=== PATIENT | female | born 1950 | race Caucasian/White ===

== ENCOUNTER 2016-10-05 12:40 | Emergency (ER) | payer MEDICARE, OTHER ==
[~2016-10-05] VITALS: Ht 160 cm; Wt 61.5 kg
[2016-10-05 12:42] VITALS: BP 127/57; PULSE 87; RESP 14; TEMP 98.4; O2SAT 96
[2016-10-05] MEDS ORDERED: TRIA37.53 PO (12:57)
[2016-10-05] MEDS ORDERED: TERB250T4 PO (12:57)
[2016-10-05] MEDS ORDERED: ESTR.625 PO (12:57)
[2016-10-05] MEDS ORDERED: SERT-129 PO (12:57)
[2016-10-05] MEDS ORDERED: METR-1 PO (13:27)
[2016-10-05] MEDS ORDERED: CIPR-9 PO (13:27)
--- NOTE | 2016-10-05 13:27 | PD ---
HPI Chief Complaint: GI Complaint Time Seen by Provider: 13:18 Travel History International Travel<30 days: No Contact w/Intl Traveler<30days: No Traveled to known affect area: No History of Present Illness HPI So well 66-year-old woman presents emergent [place] of 2 weeks worth of diarrhea. States she's gone 4 times in the past 24 hours. She also has mild abdominal cramping diffusely. No history of previous similar symptoms. No sick contacts. No nausea or vomiting, fevers or chills. She otherwise had been feeling generally well and healthy. No blood in the stool. History Past Medical History Medical History: Denies Significant Hx Social History Tobacco Use: No Allergies-Medications (Allergen,Severity, Reaction): Coded Allergies: Sulfa (Verified Allergy, Severe, Swelling, 10/05/16) Reported Meds & Prescriptions Reported Meds & Active Scripts Active Reported Terbinafine 250 Mg Tab 250 Mg PO DAILY Premarin (Estrogens Conjugated) 0.625 Mg Tab 0.625 Mg PO DAILY Triamterene-Hydrochlorothiazide 37.5-25 Mg Cap 1 Cap PO DAILY Sertraline (Sertraline HCl) 100 Mg Tab 100 Mg PO DAILY Review of Systems Except as stated in HPI: all other systems reviewed are Neg Physical Exam Narrative GENERAL: Well-appearing 66-year-old woman, no acute distress. SKIN: Warm and dry. HEAD: Atraumatic. Normocephalic. EYES: Pupils equal and round. No scleral icterus. No injection or drainage. ENT: No nasal bleeding or discharge. Mucous membranes pink and moist. NECK: Trachea midline. No JVD. CARDIOVASCULAR: Regular rate and rhythm. No murmur appreciated. RESPIRATORY: No accessory muscle use. Clear to auscultation. Breath sounds equal bilaterally. GASTROINTESTINAL: Abdomen flat soft. Minimal diffuse tenderness, worse on the left. MUSCULOSKELETAL: No obvious deformities. No clubbing. No cyanosis. No edema. NEUROLOGICAL: Awake and alert. No obvious cranial nerve deficits. Motor grossly within normal limits. Normal speech. PSYCHIATRIC: Appropriate mood and affect; insight and judgment normal. Data Data Last Documented VS Vital Signs Date Time Temp Pulse Resp B/P Pulse Ox O2 Delivery O2 Flow Rate FiO2 10/05/16 12:42 98.4 87 14 127/57 96 Room Air [facility] Medical Decision Making Medical Screen Exam Complete: Yes Emergency Medical Condition: Yes Differential Diagnosis Diverticulitis, colitis, infectious diarrhea, other Narrative Course Medical decision making the 66-year-old presents emergent department with the diarrhea and abdominal cramping. Looks well. Benign exam. Suspect diverticulitis, possible colitis. She notably to stool sample now. Think she needs imaging. We'll try trial of antibiotics, she agrees to return for any worsening abdominal pain, fevers, bloody diarrhea, or any other new or worsening symptoms. Diagnosis Primary Impression: Colitis Additional Instructions: Take Cipro and Flagyl as prescribed. Follow-up with her outpatient doctor in the next 5-7 days if you're not improving. Return to the emergency department for any worsening pain, bloody diarrhea, high fevers, or any other new or worsening symptoms. You've can also take loperamide/Imodium [id number] as needed for diarrhea. Med/Other Pt SpecificInfo: Prescription(s) given Scripts Metronidazole (Flagyl)500 Mg Met249 Mg PO TID 7 Days Ref 0 Prov:Jone Adan MD 10/05/16 Ciprofloxacin (Cipro)500 Mg Qed193 Mg PO BID 7 Days Prov:Jone Adan MD 10/05/16 Disposition: 01 DISCHARGE HOME Condition: Stable Jone Adan MD Oct 05, 2016 13:27
== END 2016-10-05 13:45 | disposition home or self-care (01) ==
LOC: NETRI 12:40
DX: K52.9 Noninfective gastroenteritis and colitis, unspecified (principal)
CPT/HCPCS: 99283

== ENCOUNTER 2016-12-01 21:37 | Observation (INO) | payer MEDICARE, OTHER ==
[~2016-12-01] VITALS: Ht 160 cm; Wt 60.0 kg
[~2016-12-01 21:37] MED LIST: CIPR-9 PO; ESTR.625 PO; METR-1 PO; SERT-129 PO; TERB250T4 PO; TRIA37.53 PO
[2016-12-01 21:38] VITALS: BP 140/78; PULSE 92; RESP 16; TEMP 98.1; O2SAT 98
[2016-12-02] VITALS (8 sets, daily range): BP systolic 119–173; BP diastolic 60–81; PULSE 71–86; RESP 15–24; TEMP 96.5–98.8; O2SAT 95–100
[2016-12-02] MEDS ORDERED: SODIUM CHLOR 0.9% 1000 ML INJ 1,000 ML IV SCH (02:55)
--- NOTE | 2016-12-02 02:57 | PD ---
HPI Chief Complaint: Abdominal Pain Time Seen by Provider: 02:50 Travel History International Travel<30 days: No Contact w/Intl Traveler<30days: No Traveled to known affect area: No History of Present Illness HPI 66-year-old female here for evaluation of lower abdominal pain that radiates to her lower back. Symptoms started around 5 PM yesterday. She describes the pain as tightness/cramping/moderate/constant, worse with movement and palpation. She feels nauseous but has not vomited. No diarrhea. History of hysterectomy and appendectomy. No urinary symptoms. PFSH Past Medical History Arthritis: Yes Cardiovascular Problems: Yes (HTN) Hypertension: Yes Immunizations Current: Yes Past Surgical History Appendectomy: Yes Eye Surgery: Yes (lasix) Gynecologic Surgery: Yes Hysterectomy: Yes Tonsillectomy: Yes Other Surgery: Yes Social History Alcohol Use: Yes Tobacco Use: No Substance Use: Yes (marijuana) Allergies-Medications (Allergen,Severity, Reaction): Coded Allergies: Sulfa (Verified Allergy, Severe, Swelling, 12/01/16) Vicodin (Verified Allergy, Severe, Itching, 12/02/16) Reported Meds & Prescriptions Reported Meds & Active Scripts Active Reported Premarin (Estrogens Conjugated) 0.625 Mg Tab 0.625 Mg PO DAILY Triamterene-Hydrochlorothiazide 37.5-25 Mg Cap 1 Cap PO DAILY Sertraline (Sertraline HCl) 100 Mg Tab 100 Mg PO DAILY Review of Systems Except as stated in HPI: all other systems reviewed are Neg Physical Exam Narrative GENERAL: Well-developed, well-nourished, comfortable, no acute distress. SKIN: Warm and dry. No rash. HEAD: Atraumatic. Normocephalic. EYES: Pupils equal and round. No scleral icterus. No injection or drainage. ENT: Mucous membranes pink and moist. NECK: Trachea midline. No JVD. CARDIOVASCULAR: Regular rate and rhythm. No murmur appreciated. RESPIRATORY: No accessory muscle use. Clear to auscultation. Breath sounds equal bilaterally. GASTROINTESTINAL: Abdomen soft, nondistended. Mild diffuse tenderness without peritoneal signs. MUSCULOSKELETAL: No obvious deformities. No clubbing. No cyanosis. No edema. No midline vertebral step-off or tenderness. Mild bilateral lumbar paraspinal tenderness. NEUROLOGICAL: Awake and alert. No obvious cranial nerve deficits. Motor grossly within normal limits. Normal speech. Great toe extension present bilaterally. Normal motor and sensory to bilateral lower extremities. PSYCHIATRIC: Appropriate mood and affect; insight and judgment normal. Data Data Last Documented VS Vital Signs Date Time Temp Pulse Resp B/P Pulse Ox O2 Delivery O2 Flow Rate FiO2 12/02/16 04:03 78 17 173/75 97 Room Air 12/02/16 00:58 98.8 Orders Electrocardiogram (12/01/16 21:56) Complete Blood Count With Diff (12/02/16 02:55) Comprehensive Metabolic Panel (12/02/16 02:55) Lipase (12/02/16 02:55) Lactic Acid (12/02/16 02:55) Prothrombin Time / Inr (Pt) (12/02/16 02:55) Act Partial Throm Time (Ptt) (12/02/16 02:55) Urinalysis - C+S If Indicated (12/02/16 02:55) Iv Access Insert/Monitor (12/02/16 02:55) Ecg Monitoring (12/02/16 02:55) Oximetry (12/02/16 02:55) Morphine Inj (Morphine Inj) (12/02/16 03:00) Ondansetron Inj (Zofran Inj) (12/02/16 03:00) Sodium Chlor 0.9% 1000 Ml Inj (Ns 1000 M (12/02/16 02:55) Sodium Chloride 0.9% Flush (Ns Flush) (12/02/16 03:00) Ct Abd/Pel W/O Iv Contrast (12/02/16 03:54) Sodium Chlor 0.9% 1000 Ml Inj (Ns 1000 M (12/02/16 04:45) Urine Culture (12/02/16 04:45) Ceftriaxone Inj (Rocephin Inj) (12/02/16 05:15) Morphine Inj (Morphine Inj) (12/02/16 05:15) Labs Laboratory Tests Test 12/02/16 12/02/16 03:15 04:45 White Blood Count 9.4 TH/MM3 Red Blood Count 4.52 MIL/MM3 Hemoglobin 14.1 GM/DL Hematocrit 40.5 % Mean Corpuscular Volume 89.6 FL Mean Corpuscular Hemoglobin 31.1 PG Mean Corpuscular Hemoglobin 34.7 % Concent Red Cell Distribution Width 14.0 % Platelet Count 194 TH/MM3 Mean Platelet Volume 7.6 FL Neutrophils (%) (Auto) 70.2 % Lymphocytes (%) (Auto) 16.7 % Monocytes (%) (Auto) 12.3 % Eosinophils (%) (Auto) 0.3 % Basophils (%) (Auto) 0.5 % Neutrophils # (Auto) 6.6 TH/MM3 Lymphocytes # (Auto) 1.6 TH/MM3 Monocytes # (Auto) 1.2 TH/MM3 Eosinophils # (Auto) 0.0 TH/MM3 Basophils # (Auto) 0.0 TH/MM3 CBC Comment DIFF FINAL Differential Comment Prothrombin Time 10.2 SEC Prothromb Time International 0.9 RATIO Ratio Activated Partial 24.6 SEC Thromboplast Time Sodium Level 138 MEQ/L Potassium Level 3.6 MEQ/L Chloride Level 102 MEQ/L Carbon Dioxide Level 22.7 MEQ/L Anion Gap 13 MEQ/L Blood Urea Nitrogen 17 MG/DL Creatinine 2.00 MG/DL Estimat Glomerular Filtration 25 ML/MIN Rate Random Glucose 127 MG/DL Lactic Acid Level 1.4 mmol/L Calcium Level 8.9 MG/DL Total Bilirubin 0.7 MG/DL Aspartate Amino Transf 19 U/L (AST/SGOT) Alanine Aminotransferase 23 U/L (ALT/SGPT) Alkaline Phosphatase 69 U/L Total Protein 7.0 GM/DL Albumin 3.9 GM/DL Lipase 130 U/L Urine Color LIGHT-YELLOW Urine Turbidity CLEAR Urine pH 7.0 Urine Specific [place] 1.005 Urine Protein 300 mg/dL Urine Glucose (UA) NEG mg/dL Urine Ketones NEG mg/dL Urine Occult Blood NEG Urine Nitrite NEG Urine Bilirubin NEG Urine Urobilinogen LESS THAN 2.0 MG/DL Urine Leukocyte Esterase NEG Urine RBC 3 /hpf Urine WBC 11 /hpf Urine Bacteria OCC /hpf Urine Mucus FEW /lpf Microscopic Urinalysis Comment CATH-CULTURE IND MDM Medical Decision Making Medical Screen Exam Complete: Yes Emergency Medical Condition: Yes Medical Record Reviewed: Yes Differential Diagnosis Diverticulitis, colitis, cystitis, UTI, nephrolithiasis, ureterolithiasis, Narrative Course Initial vital signs show heart rate 92, blood pressure 140/70, pulse ox 98% on room air, oral temp of 98.1F. CBC is unremarkable. CMP is remarkable for creatinine 2, GFR 25, random glucose 124, otherwise unremarkable. Lipase is 1:30. UA shows 300 protein, 11 WBCs, occasional bacteria, few mucus, cath culture indicated. CT abdomen pelvis: CONCLUSION: 1. Mild induration of fat in the perirenal space bilaterally without evidence of hydronephrosis or renal stones. 2. Mild sigmoid diverticulosis without radiographic evidence of diverticulitis. Patient was made aware of all findings. She is on vacation from [place]. She tells me that she has never been told that she has any issues with her kidneys and reports that she has a yearly check up with her primary care physician where she has blood work performed. She will be started on Rocephin for her UA findings. Straight catheter needed to be performed as the patient was unable to provide urine. Despite receiving 1 L of normal saline IV, only 4 cc of urine was obtained by straight cath. The patient will be admitted for further treatment and evaluation of renal insufficiency, UTI. Case discussed with hospitalist Dr. Wyman who will admit the patient to her service for overnight observation. Diagnosis Primary Impression: Renal insufficiency Additional Impressions: Proteinuria Qualified Code: R80.9 - Proteinuria, unspecified type UTI (urinary tract infection) Qualified Code: N39.0 - Urinary tract infection without hematuria, site unspecified Admitting Information Admitting Physician Requests: Observation Timo Ramsey MD Dec 02, 2016 02:57
[2016-12-02] MEDS ORDERED: ONDANSETRON HCL 4 MG/2 ML VIAL IVP ONE (03:00)
[2016-12-02] MEDS ORDERED: SODIUM CHLORIDE 0.9% FLUSH 5 ML FLUSH IVF PRN (03:00)
[2016-12-02] MEDS ORDERED: MORPHINE SULFATE 4 MG/ML INJ IV PUSH ONE ×2 (03:00→05:15)
[2016-12-02 03:21] LABS: AUTOMATED NEUTROPHIL # 6.6 TH/MM3 (1.8-7.7); BASOPHIL % 0.5 % (0.0-2.0); EOSINOPHIL % 0.3 % (0.0-4.0); HEMATOCRIT 40.5 % (35.0-46.0); HEMO FLAGS DIFF FINAL; LYMPH % 16.7 % (9.0-44.0); LYMPHOCYTE # 1.6 TH/MM3 (1.0-4.8); MEAN CELL VOLUME 89.6 FL (80.0-100.0); MEAN CORPUSCULAR HEMOGLOBIN 31.1 PG (27.0-34.0); MEAN CORPUSCULAR HGB CONC 34.7 % (32.0-36.0); MONO % 12.3 % (0.0-8.0); NEUT % 70.2 % (16.0-70.0); PLATELET COUNT 194 TH/MM3 (150-450); RED BLOOD COUNT 4.52 MIL/MM3 (4.00-5.30); WHITE BLOOD COUNT 9.4 TH/MM3 (4.0-11.0)
[2016-12-02 03:31] LABS: APTT (PATIENT) 24.6 SEC (24.3-30.1); INTERNATIONAL NORMALIZED RATIO 0.9 RATIO; PROTHROMBIN TIME - PATIENT 10.2 SEC (9.8-11.6)
[2016-12-02 03:50] LABS: ANION GAP 13 MEQ/L (5-15); AST (GOT) 19 U/L (15-37); BICARBONATE 22.7 MEQ/L (21.0-32.0); BLOOD UREA NITROGEN 17 MG/DL (7-18); CHLORIDE 102 MEQ/L (98-107); GLOMERULAR FILTRATION RATE 25 ML/MIN (>89); POTASSIUM 3.6 MEQ/L (3.5-5.1); SODIUM (NA) 138 MEQ/L (136-145)
[2016-12-02 03:53] LABS: ALKALINE PHOSPHATASE 69 U/L (45-117); ALT (GPT) 23 U/L (10-53); TOTAL BILIRUBIN ADULT 0.7 MG/DL (0.2-1.0)
--- NOTE | 2016-12-02 04:31 | RADRPT ---
EXAM DATE/TIME: 12/02/2016 03:59 [facility] COMPARISON: No previous studies available for comparison. INDICATIONS : Low back and abdomen pain ORAL CONTRAST: No oral contrast ingested. RADIATION DOSE: 6.0 CTDIvol (mGy) MEDICAL HISTORY : Hypertension. SURGICAL HISTORY : Appendectomy. Tonsillectomy.Hysterectomy.Shoulder surgery. ENCOUNTER: Initial ACUITY: 1 day PAIN SCALE: 5/10 LOCATION: Low back/abdomen TECHNIQUE: Volumetric scanning of the abdomen and pelvis was performed. Using automated exposure control and ad justment of the mA and/or kV according to patient size, radiation dose was kept as low as reasonably achievable to obtain optimal diagnostic quality images. FINDINGS: LOWER LUNGS: The visualized lower lungs are clear. LIVER: Homogeneous density without lesion. There is no dilation of the biliary tree. No calcified gallston es. SPLEEN: Normal size without lesion. PANCREAS: Within normal limits. KIDNEYS: Normal in size and shape. There is no mass, stone, or hydronephrosis. There is mild induration of t he fat in the perirenal space bilaterally. Both ureters are normal in diameter no calcification efrain g the course of either ureter. ADRENAL GLANDS: Within normal limits. VASCULAR: There is no aortic aneurysm. BOWEL/MESENTERY: No definite loops of small or large bowel. Multiple small sigmoid diverticula without radiographic e vidence of diverticulitis. No free fluid. ABDOMINAL WALL: Within normal limits. RETROPERITONEUM: There is no lymphadenopathy. Incidental note of retroaortic left renal vein. BLADDER: No wall thickening or mass. REPRODUCTIVE: Within normal limits. INGUINAL: There is no lymphadenopathy or hernia. MUSCULOSKELETAL: Degenerative changes in the lower lumbar spine posterior elements. CONCLUSION: 1. Mild induration of fat in the perirenal space bilaterally without evidence of hydronephrosis or re nal stones. 2. Mild sigmoid diverticulosis without radiographic evidence of diverticulitis. Ney Mckeon MD on December 02, 2016 at 4:24 Board Certified Radiologist. This report was verified electronically.
[2016-12-02] MEDS ORDERED: SODIUM CHLOR 0.9% 1000 ML INJ 1,000 ML IV ONE (04:45)
[2016-12-02 04:54] LABS: BACTERIA, URINE OCC /hpf; BLOOD, URINE NEG (NEG); COMMENT (UR) CATH-CULTURE IND; CULTURE IF INDICATED CATH CULTURE IND; GLUCOSE,URINE NEG (NEG); KETONE, URINE NEG (NEG); MUCUS URINE FEW /lpf (OCC); NITRITE,URINE NEG (NEG); URINE COLOR LIGHT-YELLOW (YELLW/STRAW)
[2016-12-02] MEDS ORDERED: cefTRIAXone INJ 1,000 MG in SODIUM CHLORIDE 0.9% INJ 100 ML IV ONE (05:15)
[2016-12-02] MEDS ORDERED: BISACODYL 10 MG SUPP PR PRN ×2 (05:30→09:00)
[2016-12-02] MEDS ORDERED: SODIUM CHLORIDE 0.9% FLUSH 5 ML FLUSH FLUSH PRN (05:30)
[2016-12-02] MEDS ORDERED: MORPHINE SULFATE 4 MG/ML INJ IV PRN (05:30)
[2016-12-02] MEDS ORDERED: ACETAMINOPHEN 325 MG TAB PO PRN (05:30)
[2016-12-02] MEDS ORDERED: ONDANSETRON HCL 4 MG/2 ML VIAL IVP PRN (05:30)
[2016-12-02] MEDS: SODIUM CHLOR 0.9% 1000 ML INJ 1,000 ML IV SCH ×3 (06:33→21:04)
[2016-12-02] MEDS: SODIUM CHLORIDE 0.9% FLUSH 5 ML FLUSH FLUSH SCH ×2 (07:28→21:03)
[2016-12-02] MEDS ORDERED: NALOXONE HCL 0.4 MG/ML AMP IV PRN (08:30)
[2016-12-02] MEDS ORDERED: SENNOSIDES 8.6 MG TAB PO PRN (09:00)
[2016-12-02] MEDS ORDERED: hydrALAZINE HCL 20 MG/ML VIAL IV PRN (09:00)
[2016-12-02] MEDS ORDERED: cloNIDine HCL 0.1 MG TAB PO PRN (09:00)
[2016-12-02] MEDS: DOCUSATE SODIUM 100 MG CAP PO SCH ×2 (09:00→21:02)
[2016-12-02] MEDS: amLODIPine BESYLATE 5 MG TAB PO SCH (09:28)
[2016-12-02] MEDS: SERTRALINE HCL 100 MG TAB PO SCH (09:28)
[2016-12-02] MEDS: HEPARIN SODIUM - SQ 10,000 UNITS/ML VIAL SQ SCH ×2 (09:29→20:57)
--- NOTE | 2016-12-02 10:02 | RADRPT ---
EXAM DATE/TIME: 12/02/2016 08:52 [facility] COMPARISON: No previous studies available for comparison. INDICATIONS : Increased BUN and creatinine. MEDICAL HISTORY : Arthritis. Hypertension. SURGICAL HISTORY : Tonsillectomy. Hysterectomy. Appendectomy. Right knee surgery. Bilateral shoulder surgery. Eye surger y. ENCOUNTER: Initial ACUITY: 1 day PAIN SCORE: 2/10 LOCATION: Bilateral flank MEASUREMENTS: RIGHT KIDNEY: 10.8 x 7.1 x 6.5 cm LEFT KIDNEY: 10.1 x 5.7 x 5.9 cm FINDINGS: RIGHT KIDNEY: Renal cortex is normal in thickness and echotexture. No hydronephrosis, stone, or mass. LEFT KIDNEY: Renal cortex is normal in thickness and echotexture. No hydronephrosis, stone, or mass. BLADDER: Within normal limits given the degree of distension. CONCLUSION: Ultrasound appearance of the kidneys and urinary bladder within normal limits. Jose Purvis MD on December 02, 2016 at 10:00 Board Certified Radiologist. This report was verified electronically.
[2016-12-02] MEDS: ESTROGENS CONJUGATED 0.625 MG TAB PO SCH (10:57)
--- NOTE | 2016-12-02 11:54 | HHI.HP ---
HPI Service [facility] Primary Care Physician Non-Staff Admission Diagnosis renal insufficiency, proteinuria, UTI Diagnoses: Chief Complaint: Abdominal/back pain Travel History International Travel<30 Days: No Contact w/Intl Traveler <30 Da: No Traveled to Known Affected Are: No History of Present Illness 66-year-old female with a past medical history of HTN and depression who presented with acute onset of abdominal and back pain yesterday. She is down visiting from [place]. Patient states she was out of the restaurant eating dinner around 5 PM yesterday and had acute onset of abdominal and back pain. She states the pain was severe 10/10 and stabbing quality. She states the pain persisted for about 4 hours and she came to the emergency room. She denies any nausea, dysuria, constipation, diarrhea, fever, chills. She has noted that her urine has been cloudy. She denies any history of kidney stones. She states that at this time, the lower abdominal pain has resolved. She still has some lower back discomfort, but states that it is tolerable. She denies any past history of renal disease that she knows of. Review of Systems Except as stated in HPI: all other systems reviewed are Neg Past Family Social History Past Medical History Hypertension Depression Past Surgical History Appendectomy Hysterectomy Tonsillectomy ACL repair Rotator cuff surgery 2 Fingers surgeries Reported Medications Premarin (Estrogens Conjugated) 0.625 Mg Tab 0.625 Mg PO DAILY Triamterene-Hydrochlorothiazide 37.5-25 Mg Cap 1 Cap PO DAILY Sertraline (Sertraline HCl) 100 Mg Tab 100 Mg PO DAILY Allergies: Coded Allergies: Sulfa (Verified Allergy, Severe, Swelling, 12/01/16) Vicodin (Verified Allergy, Severe, Itching, 12/02/16) Active Ordered Medications Current Medications Medications (Trade) Dose Ordered Sig/Roxanne Route Start Time Stop Time Status Last Admin (NS 1000 ml Inj) 1,000 ml @ 150 mls/hr Q6H40M IV 12/02/16 05:18 12/02/16 06:33 (NS Flush) 2 ml UNSCH PRN FLUSH 12/02/16 05:30 (NS Flush) 2 ml BID FLUSH 12/02/16 09:00 (Zofran Inj) 4 mg Q6H PRN IVP 12/02/16 05:30 (Tylenol) 650 mg Q6H PRN PO 12/02/16 05:30 Morphine Sulfate 2 mg 2 mg Q3H PRN IV 12/02/16 05:30 (Rocephin Inj/NS Inj) 100 ml @ 200 mls/hr Q24H IV 12/03/16 06:00 (Norvasc) 5 mg DAILY PO 12/02/16 09:00 12/02/16 09:28 (Dulcolax Supp) 10 mg DAILY PRN VT 12/02/16 09:00 (Colace) 100 mg Q12H PO 12/02/16 09:00 (Senokot) 17.2 mg Q12H PRN PO 12/02/16 09:00 (Heparin Inj) 5,000 units Q12H SQ 12/02/16 09:00 12/02/16 09:29 (Narcan Inj) 0.4 mg UNSCH PRN IV 12/02/16 08:30 (Apresoline Inj) 10 mg Q6H PRN IV 12/02/16 09:00 (Catapres) 0.1 mg Q6H PRN PO 12/02/16 09:00 (Premarin) 0.625 mg DAILY PO 12/02/16 09:00 12/02/16 10:57 (Zoloft) 100 mg DAILY PO 12/02/16 10:00 12/02/16 09:28 Family History Reviewed, no family history pertinent to current chief complaint Social History She does drink 3 alcoholic beverages daily, beer and cocktails, denies any problems with withdrawal She denies any smoking Physical Exam Vital Signs Vital Signs Date Time Temp Pulse Resp B/P Pulse Ox O2 Delivery O2 Flow Rate FiO2 12/02/16 10:57 71 24 119/80 97 Room Air 12/02/16 07:27 77 15 166/70 100 Nasal Cannula 2 12/02/16 06:33 80 16 127/81 100 Room Air 12/02/16 04:03 78 17 173/75 97 Room Air 12/02/16 02:37 25 12/02/16 00:58 98.8 86 16 136/64 99 Room Air 12/01/16 21:38 98.1 92 16 140/78 98 Room Air Physical Exam GENERAL: Well-developed well-nourished. In no acute distress. SKIN: Warm and dry. No lesions noted. HEENT: Normocephalic. Pupils equal and round. Mucous membranes pink and moist. CARDIOVASCULAR: Regular rate and rhythm. No murmur appreciated. RESPIRATORY: No accessory muscle use. Clear to auscultation. Breath sounds equal bilaterally. GASTROINTESTINAL: Abdomen soft, non-tender, nondistended. Bowel sounds x4. MUSCULOSKELETAL: No obvious deformities. No clubbing or cyanosis. No edema. NEUROLOGICAL: Awake and alert. No focal neurological deficits. Moves upper and lower extremities spontaneously. Normal speech. PSYCHIATRIC: Appropriate mood and affect; insight and judgment normal. Laboratory Laboratory Tests Test 12/02/16 12/02/16 12/02/16 03:15 04:45 06:15 White Blood Count 9.4 Red Blood Count 4.52 Hemoglobin 14.1 Hematocrit 40.5 Mean Corpuscular Volume 89.6 Mean Corpuscular Hemoglobin 31.1 Mean Corpuscular Hemoglobin 34.7 Concent Red Cell Distribution Width 14.0 Platelet Count 194 Mean Platelet Volume 7.6 Neutrophils (%) (Auto) 70.2 Lymphocytes (%) (Auto) 16.7 Monocytes (%) (Auto) 12.3 Eosinophils (%) (Auto) 0.3 Basophils (%) (Auto) 0.5 Neutrophils # (Auto) 6.6 Lymphocytes # (Auto) 1.6 Monocytes # (Auto) 1.2 Eosinophils # (Auto) 0.0 Basophils # (Auto) 0.0 CBC Comment DIFF FINAL Differential Comment Prothrombin Time 10.2 Prothromb Time International 0.9 Ratio Activated Partial 24.6 Thromboplast Time Sodium Level 138 Potassium Level 3.6 Chloride Level 102 Carbon Dioxide Level 22.7 Anion Gap 13 Blood Urea Nitrogen 17 Creatinine 2.00 Estimat Glomerular Filtration 25 Rate Random Glucose 127 Lactic Acid Level 1.4 Calcium Level 8.9 Total Bilirubin 0.7 Aspartate Amino Transf 19 (AST/SGOT) Alanine Aminotransferase 23 (ALT/SGPT) Alkaline Phosphatase 69 Total Protein 7.0 Albumin 3.9 Lipase 130 Urine Color LIGHT-YELLOW Urine Turbidity CLEAR Urine pH 7.0 Urine Specific [place] 1.005 Urine Protein 300 Urine Glucose (UA) NEG Urine Ketones NEG Urine Occult Blood NEG Urine Nitrite NEG Urine Bilirubin NEG Urine Urobilinogen LESS THAN 2.0 Urine Leukocyte Esterase NEG Urine RBC 3 Urine WBC 11 Urine Bacteria OCC Urine Mucus FEW Microscopic Urinalysis Comment CATH-CULTURE IND Total Creatine Kinase 63 Date/Time Procedure Status Source Growth 12/02/16 04:45 Urine Culture Received Urine Catheterized Urine Pending Result Diagram: 12/02/16 0315 12/02/16 0315 Imaging Last Impressions Abdomen/Pelvis CT 12/02/16 0354 Signed Impressions: Service Date/Time: Friday, December 02, 2016 03:59 - CONCLUSION: 1. Mild induration of fat in the perirenal space bilaterally without evidence of hydronephrosis or renal stones. 2. Mild sigmoid diverticulosis without radiographic evidence of diverticulitis. Ney Mckeon MD Renal Ultrasound 12/02/16 0000 Signed Impressions: Service Date/Time: Friday, December 02, 2016 08:52 - CONCLUSION: Ultrasound appearance of the kidneys and urinary bladder within normal limits. Jose Purvis MD Assessment and Plan Assessment and Plan 66-year-old female with a past medical history of HTN and depression who presented with acute onset of abdominal and back pain Abdominal/lower back pain: Possibly secondary to UTI vs pyelonephritis vs passed stone. Abdominal CT reviewed which showed mild induration of the fat in the perirenal space bilaterally without evidence of hydronephrosis or renal stones. Creatinine 2, no previous labs for comparison. UA with evidence of UTI. Treat with antibiotics as below. Pain control with IV morphine as needed. Obtain records from PCP for comparison of renal function UTI/sepsis: UA with evidence of UTI. Tachycardia and tachypnea. Afebrile with no leukocytosis. Lactic acid within normal limits. Continue empiric IV Rocephin. Follow up urine culture. Acute kidney injury: Creatinine 2, no previous labs for comparison. Abdominal CT as above. Check renal ultrasound which showed normal appearance of the kidneys. IVF. Check CPK. Monitor urine output. Consulted nephrology. Follow -up BMP. Hypertension: Chronic, Labile. Hold home diuretics with JOYCE as above. Started on amlodipine. Clonidine and IV hydralazine as needed. DVT prophylaxis: Heparin. SCDs. Written by Deon Guo, acting as scribe for [] on 12/02/16 at 10:23. All or portions of this note were transcribed by [email or web address] []. I, Dr. Curt Goodman personally performed the history, physical exam, and medical decision making; and confirmed the accuracy of the information in the transcribed note. Authenticated by Dr. Curt Goodman on 12/02/16 at 14:52. Discussed Condition With Patient, Deon Deshpande Dec 02, 2016 11:54 Curt Goodman MD Dec 02, 2016 14:52
--- NOTE | 2016-12-02 13:22 | MB ---
cc: MAURA AARON MD DATE OF CONSULTATION: 12/02/2016. REASON FOR CONSULTATION: Elevated BUN and creatinine for evaluation. HISTORY OF PRESENT ILLNESS: This is a 66-year-old female with a past medical history of chronic back pain, history of hypertension and arthritis who came into the hospital with complaint of back and lower abdominal pain. I was called to see the patient because of elevated BUN and creatinine. The patient had a BUN of 17 and a creatinine of 2.0 on admission. We do not have any baseline creatinine. The patient was here in September and at that time there were no labs done. The patient denies any known history of renal disease but she admits that she has been taking Advil PM every night for a long time. She denies any dysuria, hematuria or difficulty in passing urine. The patient did not notice at home any decrease in the urine output. Her she has difficulty getting the urine out and she has a history of cath and after that she had one urine output and according to her it was a good amount. She has nausea but there is no vomiting and the pain is intermittent and cramping like in the lower abdomen. She did not have any dysuria but according to her, the urine was dark in color. There is no history of fevers. There is no history of diarrhea. PAST MEDICAL HISTORY: 1. Hypertension. 2. Arthritis. 3. Possible chronic kidney disease. PAST SURGICAL HISTORY: 1. Appendectomy. 2. Tonsillectomy. 3. Hysterectomy. 4. LASIK surgery for the eyes. REVIEW OF SYSTEMS: There is no history of fever. No headache, dizziness or blurring of vision. No shortness of breath. No chest pain. No palpitations. The patient denies any history of vomiting. She has nausea and the lower abdominal pain and back pain. This has been going on for the last few days but since yesterday evening it has been more persistent and severe and has been intermittent and going back and forth. There is no history of diarrhea. No dysuria or hematuria but she did notice that her urine is a little bit cloudy. SOCIAL HISTORY: The patient has no history of smoking. She occasionally takes marijuana and drinks alcohol. FAMILY HISTORY: Noncontributory. ALLERGIES: 1. SULFA. 2. VICODIN. MEDICATIONS: At home, she was on: 1. Triamterene / hydrochlorothiazide. 2. Sertraline. 3. Premarin. 4. She was on Advil PM and taking it every night. Medications now: She is just gettin. IV fluids normal saline at 150/hour. 2. Amlodipine 5 milligrams once a day. 3. Premarin 0.625 milligrams daily. 4. Zoloft 100 milligrams once a day. 5. Colace 100 milligrams q. 12 hours. 6. Heparin 5000 units subcutaneous q. 12 hours. 7. Ceftazidime 1 gram q. 24 hours. 8. Zofran as needed. 9. Tylenol as needed. PHYSICAL EXAMINATION: GENERAL: On examination, the patient is awake and alert and she is not in acute distress. VITAL SIGNS: Her last blood pressure was 166/70, temperature 98.88, oxygen saturation is 97% to 100% on two liters nasal cannula. HEAD, EYES, EARS, NOSE, THROAT: The pupils are equal and reacting to light. Nonicteric sclerae. Conjunctivae are normal. NECK: The neck is supple. JVD is not elevated. LUNGS: The patient has bilateral good air entry. No wheezing. HEART: S1 and S2 regular rhythm. ABDOMEN: Abdomen soft and lax . In the lower abdomen in the suprapubic area she has some tenderness. There is no rebound or rigidity. Bowel sounds positive. EXTREMITIES: There is no pedal edema. INVESTIGATIONS: White blood cell count is 9.4, hemoglobin is 14.1, platelet count of 194,000. Sodium 138, potassium 3.6, chloride 104, bicarbonate 22.7, BUN 17, creatinine 2.0, glucose 127, lactic acid is 1.4. AST and ALT normal. Albumin is 3.9. Total protein is 7.0. Lipase is 130. Creatine kinase is 63. INR is 0.9. Urinalysis showing protein of 300 with occasional bacteria. WBCs 11 and RBCs 3. IMAGING STUDIES: CT scan of the abdomen and pelvis was done and showed that the kidneys are normal in shape and size. No mass, stone or hydronephrosis. Mild induration of the fat in the perirenal space bilaterally. Mild sigmoid diverticulosis. ASSESSMENT AND PLAN: 1. Acute kidney injury with possibility of chronic kidney disease. 2. Urinary tract infection. 3. Lower abdominal pain could be cystitis. 4. Proteinuria. 5. Hypertension 6. History of arthritis. The patient has elevated creatinine and she also has proteinuria. We do not know her baseline creatinine and there is an element of acute kidney injury but possibly she has chronic renal disease. 1. I will check the serology since she has proteinuria. 2. Agree with continuing the IV fluids and antibiotics. 3. If her proteinuria persists will consider a renal biopsy after the infection is cleared up. Thank you for the consultation and over the weekend, the patient will be followed by Dr. Ryan Burns, and I will be back on Monday. MD AMARI Marina/[place] /10:11 AM /1:07 PM
--- NOTE | 2016-12-02 19:36 | EKG ---
Date Performed: 12/01/2016 Time Performed: 22:06:15 PTAGE: 66 years EKG: Sinus rhythm LOW QRS VOLTAGE IN PRECORDIAL LEADS POSSIBLE ANTERIOR MYOCARDIAL INFARCTION INFERIOR MYOCARDIAL INFA RCTION ABNORMAL ECG NO PREVIOUS TRACING DOCTOR: Edi Lee Interpretating Date/Time 12/02/2016 19:35:38
[2016-12-03] VITALS (7 sets, daily range): BP systolic 119–165; BP diastolic 57–77; PULSE 68–85; RESP 18–21; TEMP 96.7–98.8; O2SAT 95–99
[2016-12-03] MEDS: SODIUM CHLOR 0.9% 1000 ML INJ 1,000 ML IV SCH (06:01)
[2016-12-03] MEDS: cefTRIAXone INJ 1,000 MG in SODIUM CHLORIDE 0.9% INJ 100 ML IV SCH (06:01)
[2016-12-03 06:49] LABS: AUTOMATED NEUTROPHIL # 4.9 TH/MM3 (1.8-7.7); BASOPHIL % 0.6 % (0.0-2.0); EOSINOPHIL # 0.1 TH/MM3 (0-0.4); EOSINOPHIL % 1.1 % (0.0-4.0); HEMATOCRIT 37.5 % (35.0-46.0); HEMO FLAGS DIFF FINAL; LYMPH % 20.4 % (9.0-44.0); LYMPHOCYTE # 1.4 TH/MM3 (1.0-4.8); MEAN CELL VOLUME 93.2 FL (80.0-100.0); MEAN CORPUSCULAR HEMOGLOBIN 30.9 PG (27.0-34.0); MEAN CORPUSCULAR HGB CONC 33.2 % (32.0-36.0); MONO % 8.5 % (0.0-8.0); NEUT % 69.4 % (16.0-70.0); PLATELET COUNT 157 TH/MM3 (150-450); RED BLOOD COUNT 4.02 MIL/MM3 (4.00-5.30); RED CELL DISTRIBUTION WIDTH 14.4 % (11.6-17.2)
[2016-12-03 07:13] LABS: ALKALINE PHOSPHATASE 54 U/L (45-117); ALT (GPT) 19 U/L (10-53); ANION GAP 11 MEQ/L (5-15); AST (GOT) 16 U/L (15-37); BICARBONATE 21.2 MEQ/L (21.0-32.0); BLOOD UREA NITROGEN 17 MG/DL (7-18); CHLORIDE 115 MEQ/L (98-107); GLOMERULAR FILTRATION RATE 26 ML/MIN (>89); POTASSIUM 3.3 MEQ/L (3.5-5.1); SODIUM (NA) 147 MEQ/L (136-145); TOTAL BILIRUBIN ADULT 0.3 MG/DL (0.2-1.0)
[2016-12-03] MEDS ORDERED: LORazepam 1 MG TAB PO PRN (08:15)
[2016-12-03] MEDS ORDERED: LORazepam 2 MG/ML VIAL IV PUSH PRN ×2 (08:15)
[2016-12-03] MEDS ORDERED: LORazepam 2 MG TAB PO PRN (08:15)
[2016-12-03] MEDS: amLODIPine BESYLATE 5 MG TAB PO SCH (08:34)
[2016-12-03] MEDS: FOLIC ACID 1 MG TAB PO SCH (08:34)
[2016-12-03] MEDS: DOCUSATE SODIUM 100 MG CAP PO SCH ×2 (08:34→21:00)
[2016-12-03] MEDS: SODIUM CHLORIDE 0.9% FLUSH 5 ML FLUSH FLUSH SCH ×2 (08:34→21:00)
[2016-12-03] MEDS: ESTROGENS CONJUGATED 0.625 MG TAB PO SCH (08:34)
[2016-12-03] MEDS: SODIUM CHLOR 0.45% 1000 ML INJ 1,000 ML IV SCH ×2 (08:34→18:15)
[2016-12-03] MEDS: SERTRALINE HCL 100 MG TAB PO SCH (08:34)
[2016-12-03] MEDS: HEPARIN SODIUM - SQ 10,000 UNITS/ML VIAL SQ SCH ×2 (08:35→21:00)
[2016-12-03] MEDS: PANTOPRAZOLE SOD 40 MG DELAYED RELEASE TAB PO SCH (08:40)
[2016-12-03] MEDS: MULTIVITAMINS/MINERALS THERAPEUTIC TAB PO SCH (08:40)
[2016-12-03] MEDS: THIAMINE HCL 100 MG TAB PO SCH (08:40)
--- NOTE | 2016-12-03 08:47 | HHI.PR ---
Subjective Remarks Follow-up for abdominal pain, kidney disease, dark stools. Patient states that her abdominal pain continues to improve. She states she has been having very good urine output. She does state that she had an episode of black stool overnight. She does drink daily. Objective Vitals Vital Signs Date Time Temp Pulse Resp B/P Pulse Ox O2 Delivery O2 Flow Rate FiO2 12/03/16 04:50 97.6 83 20 160/73 95 12/03/16 00:22 98.1 68 20 119/57 95 12/02/16 20:07 98.5 85 16 132/60 95 12/02/16 15:23 78 12/02/16 13:46 96.5 81 20 164/74 98 12/02/16 10:57 71 24 119/80 97 Room Air I/O 12/02/16 12/02/16 12/02/16 12/03/16 12/03/16 12/03/16 07:00 15:00 23:00 07:00 15:00 23:00 Intake Total 790 ml Output Total 400 ml Balance 390 ml Intake Oral 490 ml IV Total 300 ml Output Urine Total 400 ml # Voids 2 2 # Bowel Movements 1 Result Diagram: 12/03/16 0527 12/03/16 0527 Imaging Last Impressions Abdomen/Pelvis CT 12/02/16 0354 Signed Impressions: Service Date/Time: Friday, December 02, 2016 03:59 - CONCLUSION: 1. Mild induration of fat in the perirenal space bilaterally without evidence of hydronephrosis or renal stones. 2. Mild sigmoid diverticulosis without radiographic evidence of diverticulitis. Ney Mckeon MD Renal Ultrasound 12/02/16 0000 Signed Impressions: Service Date/Time: Friday, December 02, 2016 08:52 - CONCLUSION: Ultrasound appearance of the kidneys and urinary bladder within normal limits. Jose Purvis MD Objective Remarks GENERAL: Well-developed well-nourished. In no acute distress. SKIN: Warm and dry. No lesions noted. HEENT: Normocephalic. Pupils equal and round. Mucous membranes pink and moist. CARDIOVASCULAR: Regular rate and rhythm. No murmur appreciated. RESPIRATORY: No accessory muscle use. Clear to auscultation. Breath sounds equal bilaterally. GASTROINTESTINAL: Abdomen soft, non-tender, nondistended. Bowel sounds x4. MUSCULOSKELETAL: No obvious deformities. No clubbing or cyanosis. No edema. NEUROLOGICAL: Awake and alert. No focal neurological deficits. Moves upper and lower extremities spontaneously. Normal speech. PSYCHIATRIC: Appropriate mood and affect; insight and judgment normal. A/P Assessment and Plan 66-year-old female with a past medical history of HTN and depression who presented with acute onset of abdominal and back pain Abdominal/lower back pain: Possibly secondary to UTI vs pyelonephritis vs passed stone. Abdominal CT reviewed which showed mild induration of the fat in the perirenal space bilaterally without evidence of hydronephrosis or renal stones. Creatinine 2, no previous labs for comparison. UA with evidence of UTI. Treat with antibiotics as below. Pain control with IV morphine as needed. Obtain records from PCP for comparison of renal function. UTI/sepsis: UA with evidence of UTI. Tachycardia and tachypnea. Afebrile with no leukocytosis. Lactic acid within normal limits. Continue empiric IV Rocephin. Follow up urine culture. Acute kidney injury: Creatinine 2, no previous labs for comparison. Abdominal CT as above. Checked renal ultrasound which showed normal appearance of the kidneys. CPK within normal limits. IVF, change to half-normal saline with hypernatremia and hyperchloremia. Monitor urine output. Consulted nephrology, appreciate input. Creatinine slightly improved today. Follow-up BMP. Dark stools: Rule out upper GI bleed. Hemoglobin within normal limits, follow- up CBC. Check Hemoccult stool. PPI. Hypertension: Chronic, Labile. Hold home diuretics with JOYCE as above. Started on amlodipine. Clonidine and IV hydralazine as needed. Alcohol abuse: Cessation counseling. [place] protocol with Ativan and rally pack. Hypokalemia: Replace potassium orally. Check magnesium. DVT prophylaxis: Heparin. SCDs. Written by Deon Guo, acting as scribe for Dr. Goodman on 12/03/16 at 08:46. All or portions of this note were transcribed by scribe []. I, Dr. Curt Goodman personally performed the history, physical exam, and medical decision making; and confirmed the accuracy of the information in the transcribed note. Authenticated by Dr. Curt Goodman on 12/03/16 at 13:03. Deon Guo Dec 03, 2016 08:47 Curt Goodman MD Dec 03, 2016 13:04
[2016-12-03] MEDS ORDERED: POTASSIUM CHLORIDE 20 MEQ CONTROLLED RELEASE TAB PO ONE (09:00)
[2016-12-03] MEDS ORDERED: FLUMAZENIL 0.5 MG/5 ML VIAL IV PUSH PRN (09:00)
--- NOTE | 2016-12-03 12:58 | HHI.NPPN ---
Objective Data Data 12/02/16 12/03/16 19:00 07:00 Intake Total 550 ml 240 ml Output Total 400 ml Balance 150 ml 240 ml Intake Oral 250 ml 240 ml IV Total 300 ml Output Urine Total 400 ml # Voids 4 # Bowel Movements 1 Vital Signs Date Time Temp Pulse Resp B/P Pulse Ox O2 Delivery O2 Flow Rate FiO2 12/03/16 12:00 97.3 75 20 136/63 97 12/03/16 08:00 76 12/03/16 08:00 98.2 73 20 165/72 99 12/03/16 04:50 97.6 83 20 160/73 95 12/03/16 00:22 98.1 68 20 119/57 95 12/02/16 20:07 98.5 85 16 132/60 95 12/02/16 15:23 78 12/02/16 13:46 96.5 81 20 164/74 98 -: 12/03/16 0527 12/03/16 0527 Microbiology 12/03/16 Stool Occult Blood ([facility]), Received Pending Assessment/Plan Problem List: (1) Renal insufficiency Plan: Creatinine 2 -> 1.9 Patient voiding on her own, reports increased UOP today. Continue IVFs for now, follow AM labs. On 09/26 NS @ 100cc/hour JOYCE may be due to volume depletion, NSAIDs - advised to avoid future NSAIDS Minimal proteinuria on spot testing, renal ultrasound negative. Continue to monitor. Potassium replaced today (2) Colitis Plan: Dark stools, feeling better. Follow FOBT testing, avoid NSAIDs (3) UTI (urinary tract infection) Plan: on ceftriaxone, follow cultures Problem Qualifiers (1) UTI (urinary tract infection): Qualified Code: N39.0 - Urinary tract infection without hematuria, site unspecified Ryan Burns MD Dec 03, 2016 12:58
[2016-12-04 00:06] VITALS: BP 159/67; PULSE 87; RESP 21; TEMP 98.8; O2SAT 98
[2016-12-04 05:25] VITALS: PULSE 80
[2016-12-04 05:26] LABS: AUTOMATED NEUTROPHIL # 5.4 TH/MM3 (1.8-7.7); BASOPHIL # 0.1 TH/MM3 (0-0.2); EOSINOPHIL # 0.2 TH/MM3 (0-0.4); EOSINOPHIL % 2.8 % (0.0-4.0); HEMATOCRIT 33.5 % (35.0-46.0); HEMO FLAGS DIFF FINAL; LYMPH % 19.6 % (9.0-44.0); LYMPHOCYTE # 1.5 TH/MM3 (1.0-4.8); MEAN CELL VOLUME 90.7 FL (80.0-100.0); MEAN CORPUSCULAR HEMOGLOBIN 31.1 PG (27.0-34.0); MEAN CORPUSCULAR HGB CONC 34.3 % (32.0-36.0); MONO % 7.7 % (0.0-8.0); NEUT % 68.9 % (16.0-70.0); PLATELET COUNT 166 TH/MM3 (150-450); WHITE BLOOD COUNT 7.8 TH/MM3 (4.0-11.0)
[2016-12-04 05:27] VITALS: BP 131/68; PULSE 80; RESP 21; TEMP 98.8; O2SAT 98
[2016-12-04 05:52] LABS: POTASSIUM 3.2 MEQ/L (3.5-5.1)
[2016-12-04 07:00] VITALS: PULSE 68
[2016-12-04] MEDS: SODIUM CHLORIDE 0.9% FLUSH 5 ML FLUSH FLUSH SCH (07:52)
[2016-12-04] MEDS: cefTRIAXone INJ 1,000 MG in SODIUM CHLORIDE 0.9% INJ 100 ML IV SCH (07:52)
[2016-12-04] MEDS: SERTRALINE HCL 100 MG TAB PO SCH (07:52)
[2016-12-04] MEDS: amLODIPine BESYLATE 5 MG TAB PO SCH (07:52)
[2016-12-04] MEDS: ESTROGENS CONJUGATED 0.625 MG TAB PO SCH (07:52)
[2016-12-04] MEDS: HEPARIN SODIUM - SQ 10,000 UNITS/ML VIAL SQ SCH (07:53)
[2016-12-04] MEDS: MULTIVITAMINS/MINERALS THERAPEUTIC TAB PO SCH (07:53)
[2016-12-04] MEDS: FOLIC ACID 1 MG TAB PO SCH (07:53)
[2016-12-04] MEDS: THIAMINE HCL 100 MG TAB PO SCH (07:53)
[2016-12-04] MEDS: PANTOPRAZOLE SOD 40 MG DELAYED RELEASE TAB PO SCH (07:53)
[2016-12-04] MEDS: DOCUSATE SODIUM 100 MG CAP PO SCH (07:53)
[2016-12-04 07:56] VITALS: BP 157/85; PULSE 72; RESP 18; O2SAT 97
[2016-12-04] MEDS ORDERED: POTASSIUM CHLORIDE 10 MEQ CONTROLLED RELEASE TAB PO ONE (08:00)
--- NOTE | 2016-12-04 08:24 | HHI.PR ---
Subjective Remarks Follow up for UTI, JOYCE. The patient reports feeling completely back to normal now. She has no medical complaints today. She wants to go home josue. Objective Vitals Vital Signs Date Time Temp Pulse Resp B/P Pulse Ox O2 Delivery O2 Flow Rate FiO2 12/04/16 07:56 72 18 157/85 97 12/04/16 05:27 98.8 80 21 131/68 98 12/04/16 05:25 80 12/04/16 00:06 98.8 87 21 159/67 98 12/03/16 19:27 98.8 81 21 142/77 98 12/03/16 16:00 96.7 79 18 129/62 96 12/03/16 15:00 85 12/03/16 12:00 97.3 75 20 136/63 97 I/O 12/03/16 12/03/16 12/03/16 12/04/16 12/04/16 12/04/16 07:00 15:00 23:00 07:00 15:00 23:00 Intake Total 1550 ml 680 ml Output Total 1150 ml Balance 400 ml 680 ml Intake Oral 750 ml 680 ml IV Total 800 ml Output Urine Total 1000 ml Stool Total 150 ml # Voids 2 2 # Bowel Movements 1 Result Diagram: 12/04/16 0433 12/04/16 0433 Imaging Last Impressions Abdomen/Pelvis CT 12/02/16 0354 Signed Impressions: Service Date/Time: Friday, December 02, 2016 03:59 - CONCLUSION: 1. Mild induration of fat in the perirenal space bilaterally without evidence of hydronephrosis or renal stones. 2. Mild sigmoid diverticulosis without radiographic evidence of diverticulitis. Ney Mckeon MD Renal Ultrasound 12/02/16 0000 Signed Impressions: Service Date/Time: Friday, December 02, 2016 08:52 - CONCLUSION: Ultrasound appearance of the kidneys and urinary bladder within normal limits. Jose Purvis MD Objective Remarks GENERAL: Well-nourished, well-developed female patient in NAD. Ambulating. SKIN: Warm and dry. No rash. HEAD: Normocephalic. Atraumatic. EYES: Pupils equal and round. No scleral icterus. No injection or drainage. ENT: No nasal bleeding or discharge. Mucous membranes pink and moist. NECK: Supple. Trachea midline. CARDIOVASCULAR: Regular rate and rhythm. S1, S2 noted. No murmur appreciated. RESPIRATORY: No accessory muscle use. Clear to auscultation. Breath sounds equal bilaterally. GASTROINTESTINAL: Abdomen soft, non-tender, nondistended. Normoactive bowel sounds x4. MUSCULOSKELETAL: No obvious deformities. Extremities without clubbing, cyanosis , or edema. NEUROLOGICAL: Awake and alert. No obvious cranial nerve deficits. Motor grossly within normal limits. Normal speech. PSYCHIATRIC: Appropriate mood and affect; insight and judgment normal. Medications and IVs Current Medications Medications (Trade) Dose Ordered Sig/Roxanne Route Start Time Stop Time Status Last Admin (NS Flush) 2 ml UNSCH PRN FLUSH 12/02/16 05:30 (NS Flush) 2 ml BID FLUSH 12/02/16 09:00 12/04/16 07:52 (Zofran Inj) 4 mg Q6H PRN IVP 12/02/16 05:30 (Tylenol) 650 mg Q6H PRN PO 12/02/16 05:30 12/02/16 20:57 Morphine Sulfate 2 mg 2 mg Q3H PRN IV 12/02/16 05:30 (Rocephin Inj/NS Inj) 100 ml @ 200 mls/hr Q24H IV 12/03/16 06:00 12/04/16 07:52 (Norvasc) 5 mg DAILY PO 12/02/16 09:00 12/04/16 07:52 (Dulcolax Supp) 10 mg DAILY PRN WA 12/02/16 09:00 (Colace) 100 mg Q12H PO 12/02/16 09:00 12/04/16 07:53 (Senokot) 17.2 mg Q12H PRN PO 12/02/16 09:00 (Heparin Inj) 5,000 units Q12H SQ 12/02/16 09:00 12/03/16 08:35 (Narcan Inj) 0.4 mg UNSCH PRN IV 12/02/16 08:30 (Apresoline Inj) 10 mg Q6H PRN IV 12/02/16 09:00 (Catapres) 0.1 mg Q6H PRN PO 12/02/16 09:00 (Premarin) 0.625 mg DAILY PO 12/02/16 09:00 12/04/16 07:52 (Zoloft) 100 mg DAILY PO 12/02/16 10:00 12/04/16 07:52 (Protonix) 40 mg DAILY PO 12/03/16 09:00 12/04/16 07:53 (Folate) 1 mg DAILY PO 12/03/16 09:00 12/08/16 08:59 12/04/16 07:53 (Vitamin B1) 100 mg DAILY PO 12/03/16 09:00 12/04/16 07:53 (Theragran M Tab) 1 tab DAILY PO 12/03/16 09:00 12/08/16 08:59 12/04/16 07:53 (Romazicon Inj) 0.2 mg Q1M PRN IV PUSH 12/03/16 09:00 (Ativan) 1 mg Q4H PRN PO 12/03/16 08:15 (Ativan) 2 mg Q2H PRN PO 12/03/16 08:15 (Ativan Inj) 2 mg Q1H PRN IV PUSH 12/03/16 08:15 Lorazepam 2 mg 2 mg Q15M PRN IV PUSH 12/03/16 08:15 (Magnesium Sulfate 1 Gm Premix) 100 ml @ 100 mls/hr Q1H IV 12/04/16 08:30 12/04/16 10:29 UNV Urinary Catheter: No Vascular Central Line Catheter: No A/P Assessment and Plan 66-year-old female with a past medical history of HTN and depression who presented with acute onset of abdominal and back pain Abdominal/lower back pain: Possibly secondary to UTI vs pyelonephritis vs passed stone. Abdominal CT reviewed which showed mild induration of the fat in the perirenal space bilaterally without evidence of hydronephrosis or renal stones. Creatinine 2, no previous labs for comparison. UA with evidence of UTI. Treat with antibiotics as below. Pain control with IV morphine as needed. Pain resolved, patient ambulatory. UTI/sepsis: UA with evidence of UTI. Tachycardia and tachypnea. Afebrile, no leukocytosis. Lactic acid wnl. Continue empiric IV Rocephin. Urine culture with no growth in 24hrs. Patient completed treatment with IV Rocephin x3days. Acute kidney injury: Creatinine 2.0, no previous labs for comparison. Abdominal CT as above. Renal ultrasound showed normal appearance of the kidneys. CPK wnl. IVF, change to /2 NS with hypernatremia and hyperchloremia. Monitor urine output. Consulted nephrology, appreciate input. Creatinine 0.97 today, back to normal. Resolved. Dark stools: Rule out upper GI bleed. Hemoglobin wnl, follow CBC. Hemoccult stool negative. PPI. No further dark stools. Hypertension: Chronic, Labile. Held home diuretics with JOYCE as above. Started on amlodipine. Clonidine and IV hydralazine as needed. Alcohol abuse: Cessation counseling. [facility] protocol with Ativan and rally pack. Hypokalemia: Replace potassium orally. Magnesium 1.4, give IV Mag sulfate x2 now. DVT prophylaxis: Heparin. SCDs. Written by Jimena Mcfarlane, acting as scribe for Dr. Goodman on 12/04/16 at 08: 20. All or portions of this note were transcribed by scribe []. I, Dr. Curt Goodman personally performed the history, physical exam, and medical decision making; and confirmed the accuracy of the information in the transcribed note. Authenticated by Dr. Curt Goodman on 12/04/16 at 22:31. Discharge Planning See discharge summary. Jimena Mcfarlane PA-C Dec 04, 2016 08:24 Curt Goodman MD Dec 04, 2016 22:31
[2016-12-04] MEDS ORDERED: AMLO5 PO (08:30)
--- NOTE | 2016-12-04 08:30 | HHI.DCPOC ---
Discharge Care Plan Diagnosis: (1) Renal insufficiency (2) UTI (urinary tract infection) Goals to Promote Your Health * To prevent worsening of your condition and complications * To maintain your health at the optimal level Directions to Meet Your Goals Take your medications as prescribed Follow your dietary instruction Follow activity as directed Keep your appointments as scheduled Take your immunizations and boosters as scheduled If your symptoms worsen call your PCP, if no PCP go to Urgent Care Center or Emergency Room Smoking is Dangerous to Your Health. Avoid second hand smoke Call the 24-hour hour crisis hotline for domestic abuse at Jimena Mcfarlane PA-C Dec 04, 2016 8:30 am
--- NOTE | 2016-12-04 08:32 | HHI.DS ---
Discharge Summary Admission Date Dec 02, 2016 at 5:26 am Discharge Date: Dec 04, 2016 Admitting Diagnosis renal insufficiency, proteinuria, UTI (1) Renal insufficiency ICD Code: N28.9 Diagnosis: Principal (2) UTI (urinary tract infection) ICD Code: N39.0 Diagnosis: Principal (3) HTN (hypertension) ICD Code: I10 Diagnosis: Secondary Procedures None. Brief History - From Admission 66-year-old female with a past medical history of HTN and depression who presented with acute onset of abdominal and back pain yesterday. She is down visiting from [place]. Patient states she was out of the restaurant eating dinner around 5 PM yesterday and had acute onset of abdominal and back pain. She states the pain was severe 10/10 and stabbing quality. She states the pain persisted for about 4 hours and she came to the emergency room. She denies any nausea, dysuria, constipation, diarrhea, fever, chills. She has noted that her urine has been cloudy. She denies any history of kidney stones. She states that at this time, the lower abdominal pain has resolved. She still has some lower back discomfort, but states that it is tolerable. She denies any past history of renal disease that she knows of. CBC/BMP: 12/04/16 0433 12/04/16 0433 Significant Findings Laboratory Tests Test 12/02/16 12/02/16 12/03/16 12/03/16 03:15 04:45 04:48 05:27 Neutrophils (%) (Auto) 70.2 % (16.0-70.0) Monocytes (%) (Auto) 12.3 % 8.5 % (0.0-8.0) (0.0-8.0) Monocytes # (Auto) 1.2 TH/MM3 (0-0.9) Creatinine 2.00 MG/DL 1.91 MG/DL (0.50-1.00) (0.50-1.00) Estimat Glomerular Filtration 25 ML/MIN (>89) 26 ML/MIN (>89) Rate Random Glucose 127 MG/DL 149 MG/DL (74-106) (74-106) Urine Protein 300 mg/dL (NEG-TRACE) Urine WBC 11 /hpf (0-5) Urine Bacteria OCC /hpf (NONE) Urine Mucus FEW /lpf (OCC) Urine Osmolality 186 MOSM/KG (300-1300) Urine Random Creatinine 20 MG/DL (27-300) Urine Protein/Creatinine Ratio 0.35 (0.00-0.14) Sodium Level 147 MEQ/L (136-145) Potassium Level 3.3 MEQ/L (3.5-5.1) Chloride Level 115 MEQ/L (98-107) Calcium Level 7.6 MG/DL (8.5-10.1) Total Protein 5.8 GM/DL (6.4-8.2) Albumin 2.9 GM/DL (3.4-5.0) Test 12/04/16 04:33 Red Blood Count 3.70 MIL/MM3 (4.00-5.30) Hemoglobin 11.5 GM/DL (11.6-15.3) Hematocrit 33.5 % (35.0-46.0) Potassium Level 3.2 MEQ/L (3.5-5.1) Chloride Level 112 MEQ/L (98-107) Estimat Glomerular Filtration 57 ML/MIN (>89) Rate Random Glucose 108 MG/DL (74-106) Magnesium Level 1.4 MG/DL (1.5-2.5) Imaging Last Impressions Abdomen/Pelvis CT 12/02/16 0354 Signed Impressions: Service Date/Time: Friday, December 02, 2016 03:59 - CONCLUSION: 1. Mild induration of fat in the perirenal space bilaterally without evidence of hydronephrosis or renal stones. 2. Mild sigmoid diverticulosis without radiographic evidence of diverticulitis. Ney Mckeon MD Renal Ultrasound 12/02/16 0000 Signed Impressions: Service Date/Time: Friday, December 02, 2016 08:52 - CONCLUSION: Ultrasound appearance of the kidneys and urinary bladder within normal limits. Jose Purvis MD PE at Discharge GENERAL: Well-nourished, well-developed female patient in NAD. Ambulating. SKIN: Warm and dry. No rash. HEAD: Normocephalic. Atraumatic. EYES: Pupils equal and round. No scleral icterus. No injection or drainage. ENT: No nasal bleeding or discharge. Mucous membranes pink and moist. NECK: Supple. Trachea midline. CARDIOVASCULAR: Regular rate and rhythm. S1, S2 noted. No murmur appreciated. RESPIRATORY: No accessory muscle use. Clear to auscultation. Breath sounds equal bilaterally. GASTROINTESTINAL: Abdomen soft, non-tender, nondistended. Normoactive bowel sounds x4. MUSCULOSKELETAL: No obvious deformities. Extremities without clubbing, cyanosis , or edema. NEUROLOGICAL: Awake and alert. No obvious cranial nerve deficits. Motor grossly within normal limits. Normal speech. PSYCHIATRIC: Appropriate mood and affect; insight and judgment normal. Hospital Course 66-year-old female with a past medical history of HTN and depression who presented with acute onset of abdominal and back pain Abdominal/lower back pain: Possibly secondary to UTI vs pyelonephritis vs passed stone. Abdominal CT reviewed which showed mild induration of the fat in the perirenal space bilaterally without evidence of hydronephrosis or renal stones. Creatinine 2, no previous labs for comparison. UA with evidence of UTI. Treat with antibiotics as below. Pain control with IV morphine as needed. Pain resolved, patient ambulatory. UTI/sepsis: UA with evidence of UTI. Tachycardia and tachypnea. Afebrile, no leukocytosis. Lactic acid wnl. Continue empiric IV Rocephin. Urine culture with no growth in 24hrs. Patient completed treatment with IV Rocephin x3days. Acute kidney injury: Creatinine 2.0, no previous labs for comparison. Abdominal CT as above. Renal ultrasound showed normal appearance of the kidneys. CPK wnl. IVF, change to 1/2 NS with hypernatremia and hyperchloremia. Monitor urine output. Consulted nephrology, appreciate input. Creatinine 0.97 today, back to normal. Resolved. Dark stools: Rule out upper GI bleed. Hemoglobin wnl, follow CBC. Hemoccult stool negative. PPI. No further dark stools. Hypertension: Chronic, Labile. Held home diuretics with JOYCE as above. Started on amlodipine. Clonidine and IV hydralazine as needed. Alcohol abuse: Cessation counseling. [facility] protocol with Ativan and rally pack. Hypokalemia: Replace potassium orally. Magnesium 1.4, give IV Mag sulfate x2 now. DVT prophylaxis: Heparin. SCDs. Written by Jimena Mcfarlane, acting as scribe for Dr. Goodman on 12/04/16 at 08:20. Pt Condition on Discharge: Stable Discharge Disposition: Discharge Home Discharge Time: <= 30 minutes Discharge Instructions DIET: Follow Instructions for: Heart Healthy Diet Activities you can perform: Regular-No Restrictions Follow up Referrals: PCP Follow-up - 1 Week New Medications: Amlodipine (Norvasc) 5 Mg Tab 5 MG PO DAILY Blood Pressure Management #30 TAB Continued Medications: Estrogens, Conjugated (Premarin) 0.625 Mg Tab 0.625 MG PO DAILY Estrogen Supplements #30 Ref 0 TAB Sertraline (Sertraline) 100 Mg Tab 100 MG PO DAILY #30 Ref 0 TAB Discontinued Medications: Triamterene-Hydrochlorothiazide (Triamterene-Hydrochlorothiazide) 37.5-25 Mg Cap 1 CAP PO DAILY #30 Ref 0 CAP Jimena Mcfarlane PA-C Dec 04, 2016 8:32 am
[2016-12-04] MEDS ORDERED: MAGNESIUM SULFATE 1 GM PREMIX 100 ML IV SCH (09:00)
[2016-12-04] MEDS ORDERED: MAGNESIUM OXIDE 400 MG TAB PO ONE (09:00)
[2016-12-05 10:55] LABS: ANA SCREEN POS (NEG)
[2016-12-07 19:53] LABS: MYELOPEROXIDASE LESS THAN 1.0 AI (<1.0); PROTEINASE-3 LESS THAN 1.0 AI (<1.0)
== END 2016-12-04 11:54 | disposition home or self-care (01) ==
LOC: NEPE 21:37 → NEDA 12-02 05:26 → NEPFCDU 12-02 13:37
PROVIDERS: ADMIT Internal Medicine; ATTEND Internal Medicine
DX: N39.0 Urinary tract infection, site not specified (principal); I10 Essential (primary) hypertension; F32.9 Major depressive disorder, single episode, unspecified; N17.9 Acute kidney failure, unspecified; M19.90 Unspecified osteoarthritis, unspecified site; F10.10 Alcohol abuse, uncomplicated; E87.6 Hypokalemia; K52.9 Noninfective gastroenteritis and colitis, unspecified; R80.9 Proteinuria, unspecified; Z90.710 Acquired absence of both cervix and uterus; Z88.2 Allergy status to sulfonamides; Z88.8 Allergy status to other drugs, medicaments and biological substances
CPT/HCPCS: 74176; 76775; 80048; 80053; 81001; 82272; 82550; 82570; 83605; 83690; 83735; 83935; 84100; 84156; 84300; 85025; 85610; 85730; 86021; 86038; 86039; 86160; 87086; 93005; 96361; 96374; 96375; 99285; G0378; J0696; J1644; J2270; J2405; J7030